=== PATIENT | female | born 1940 | race Caucasian/White ===

== ENCOUNTER 2021-12-03 17:23 | Emergency (ER) | payer MEDICARE, SELFPAY ==
[2021-12-03] VITALS (8 sets, daily range): BP systolic 163–177; BP diastolic 72–81; PULSE 76–91; RESP 17–20; TEMP 36.3; O2SAT 95–100; BMI 36.6
--- NOTE | 2021-12-03 17:27 | DI.RAD.S_ITS ---
PROCEDURE: XR KNEE RT 1TO2V INDICATIONS: fall with right knee pain TECHNIQUE: 3 views of the knee were acquired. COMPARISON: None. FINDINGS: Bones: No fractures or dislocations. No suspicious bony lesions. Severe joint space narrowing with marginal osteophytes involve both the mediolateral as well as the patellofemoral compartment. Subchondral cysts noted. Moderate joint effusion. Soft tissues: Otherwise unremarkable IMPRESSION: Severe tricompartmental osteoarthritis Moderate joint effusion Approved by: Vinh Pandya M.D. on 12/03/2021 at 17:34
[2021-12-03] MEDS: ACETAMINOPHEN 325 MG TABLET 975 MG PO (17:40)
--- NOTE | 2021-12-03 18:13 | ED.FALL ---
HPI - Fall <CARIE Patel - Last Filed: 12/03/21 20:47> General Chief Complaint: Fall Stated Complaint: fall yesterday, r knee pain Time Seen by Provider: 12/03/21 18:09 Source: patient Mode of arrival: EMS History of Present Illness HPI Narrative: 81-year-old female presents to the emergency department by EMS for right knee pain since yesterday when she fell on her right knee. She states that she lives alone, she fell forward and injured her right knee, she denies any known twisting of her right knee. Patient states that she takes tramadol at home and took 2 of these tablets prior to her arrival. Patient states that she was able to bear weight last night but has been unable to walk on it today. Patient denies taking any anticoagulants, she states that she is having muscle spasms, and having severe 10 out 10 pain in her right knee. Patient denies having any allergies, states yesterday she was able to ambulate on it but not today. She denies any sensation changes distally, she denies any specific area of her right knee that is painful, she states the whole knee hurts. Patient states that she is pending a right total knee replacement, she had an appointment with Orthopedics last week, she has known osteoarthritis of her right knee. Related Data Previous Rx's Medication Instructions Recorded hydrocodone 5 mg-acetaminophen 325 1 tab PO Q6H PRN #14 tab 12/03/21 mg tablet methocarbamol 500 mg tablet 500 mg PO TID PRN #20 tab 12/03/21 tramadol 50 mg tablet 50 mg PO DAILY PRN #14 tab 12/03/21 Allergies Allergy/AdvReac Type Severity Reaction Status Date / Time No Known Drug Allergies Allergy Verified 12/03/21 17:27 Review of Systems <CARIE Patel - Last Filed: 12/03/21 20:47> Review of Systems Narrative: General: denies fever, chills, malaise, sweats, fatigue Head/Neck: denies headache, neck pain, dizziness Eyes: denies visual changes, eye pain Cardio: denies chest pain, palpitations, edema Respiratory: denies dyspnea, cough, orthopnea GI: denies abdominal pain, nausea, vomiting, or diarrhea : denies dysuria, hematuria, urinary retention, frequency or incontinence MSK: Endorses right knee pain 07/06, she states that she can bend it but not currently due to the pain, denies muscle weakness, endorses muscle spasms Skin: denies rash, itching, skin lesions or other Neuro: denies numbness, tingling Patient History <CARIE Patel - Last Filed: 12/03/21 20:47> Social History household members: none Smoking Status: Unknown if ever smoked Smoking Status: Unknown if ever smoked alcohol intake frequency: holidays/special occasions only Substance Use Type: does not use Exam <CARIE Patel - Last Filed: 12/03/21 20:47> Narrative Exam Narrative: Independently reviewed vitals signs and nursing notes. General: Cooperative, in acute distress, well groomed, having muscle spasms and tearful Head/Neck: Normal visual inspection and supple, atraumatic, Normal facial exam Eyes: Pupils equal round and reactive, EOMI, conjunctiva normal Nose: External nose normal, nares patent, no rhinorrhea, without purulent drainage Mouth/Throat: uvula midline, moist mucus membranes Cardio: Regular rate and rhythm, no peripheral edema, warm extremities Respiratory: Normal respiratory effort, able to speak in complete sentences without audible wheezing, stridor, or rales. No retractions. GI: Abdomen soft, nontender to palpation x4 quadrants, nondistended, no masses or exquisite tenderness with exam, no flank tenderness MSK: Moves all extremities, neurovascularly intact, right quadriceps with muscle spasms, cap refill less than 2 seconds distally PT and DP pulses are 1+ bilaterally, ambulation trial after pain medicine was unsuccessful, patient was unable to bear weight due to pain. She is having muscle spasms, no deformity, no crepitus, no open wounds Skin: Normal capillary refill, no rash Neuro: Normal speech and cognition, normal gait, A&O x3, tone normal, moves all extremities Psych: Mental status is grossly normal, speech is clear, congruent mood, normal affect Initial Vital Signs Initial Vital Signs: Vital Signs Temperature 97.4 F L 12/03/21 17:22 Pulse Rate 76 12/03/21 17:22 Respiratory Rate 20 12/03/21 17:22 Blood Pressure 172/79 H 12/03/21 17:22 Pulse Oximetry 95 12/03/21 17:22 <Bryan Gómez DO - Last Filed: 12/05/21 02:00> Initial Vital Signs Initial Vital Signs: Vital Signs Temperature 97.4 F L 12/03/21 17:22 Pulse Rate 76 12/03/21 17:22 Respiratory Rate 20 12/03/21 17:22 Blood Pressure 172/79 H 12/03/21 17:22 Pulse Oximetry 95 12/03/21 17:22 Course <CARIE Patel - Last Filed: 12/03/21 20:47> Orders Ordered: Discontinued Medications Acetaminophen (Acetaminophen 325 Mg Tablet) 975 mg PO NOW ONE Stop: 12/03/21 17:41 Last Admin: 12/03/21 17:40 Dose: 975 mg Documented by: THOMAS Diclofenac Sodium (Diclofenac 1% Gel 100 Gm) 1 applic TOP NOW ONE Stop: 12/03/21 18:38 Last Admin: 12/03/21 18:57 Dose: 1 applic Documented by: THOMAS Hydromorphone HCl (Hydromorphone 0.5 Mg Inj) 0.5 mg IV NOW ONE Stop: 12/03/21 18:15 Last Admin: 12/03/21 18:33 Dose: 0.5 mg Documented by: CHA Ketorolac Tromethamine (Ketorolac 10 Mg Tablet) 10 mg PO NOW ONE Stop: 12/03/21 18:13 Last Admin: 12/03/21 18:36 Dose: Not Given Documented by: HCA Methocarbamol (Methocarbamol 500 Mg Tablet) 500 mg PO NOW ONE Stop: 12/03/21 18:16 Last Admin: 12/03/21 18:33 Dose: 500 mg Documented by: CHA Oxycodone HCl (Oxycodone Ir 5 Mg Tablet) 5 mg PO NOW ONE Stop: 12/03/21 18:13 Last Admin: 12/03/21 18:36 Dose: Not Given Documented by: CHA Oxycodone HCl (Oxycodone Ir 5 Mg Tablet) 5 mg PO NOW ONE Stop: 12/03/21 18:38 Last Admin: 12/03/21 18:50 Dose: 5 mg Documented by: THOMAS Vital Signs Vital signs: Vital Signs - 8 hr 12/03/21 17:22 12/03/21 17:38 12/03/21 17:39 Temperature 97.4 F L Pulse Rate 76 82 82 Respiratory Rate 20 Blood Pressure 172/79 H 177/77 H Pulse Oximetry 95 100 99 12/03/21 17:41 12/03/21 18:59 12/03/21 19:00 Temperature Pulse Rate 88 80 78 Respiratory Rate Blood Pressure 176/81 H 172/72 H 163/72 H Pulse Oximetry 100 98 99 <Bryan Gómez DO - Last Filed: 12/05/21 02:00> Orders Ordered: Discontinued Medications Acetaminophen (Acetaminophen 325 Mg Tablet) 975 mg PO NOW ONE Stop: 12/03/21 17:41 Last Admin: 12/03/21 17:40 Dose: 975 mg Documented by: THOMAS Diclofenac Sodium (Diclofenac 1% Gel 100 Gm) 1 applic TOP NOW ONE Stop: 12/03/21 18:38 Last Admin: 12/03/21 18:57 Dose: 1 applic Documented by: THOMAS Hydromorphone HCl (Hydromorphone 0.5 Mg Inj) 0.5 mg IV NOW ONE Stop: 12/03/21 18:15 Last Admin: 12/03/21 18:33 Dose: 0.5 mg Documented by: CHA Ketorolac Tromethamine (Ketorolac 10 Mg Tablet) 10 mg PO NOW ONE Stop: 12/03/21 18:13 Last Admin: 12/03/21 18:36 Dose: Not Given Documented by: CHA Methocarbamol (Methocarbamol 500 Mg Tablet) 500 mg PO NOW ONE Stop: 12/03/21 18:16 Last Admin: 12/03/21 18:33 Dose: 500 mg Documented by: CHA Oxycodone HCl (Oxycodone Ir 5 Mg Tablet) 5 mg PO NOW ONE Stop: 12/03/21 18:13 Last Admin: 12/03/21 18:36 Dose: Not Given Documented by: CHA Oxycodone HCl (Oxycodone Ir 5 Mg Tablet) 5 mg PO NOW ONE Stop: 12/03/21 18:38 Last Admin: 12/03/21 18:50 Dose: 5 mg Documented by: THOMAS Vital Signs Vital signs: Vital Signs - 8 hr 12/03/21 17:22 12/03/21 17:38 12/03/21 17:39 Temperature 97.4 F L Pulse Rate 76 82 82 Respiratory Rate 20 Blood Pressure 172/79 H 177/77 H Pulse Oximetry 95 100 99 12/03/21 17:41 12/03/21 18:59 12/03/21 19:00 Temperature Pulse Rate 88 80 78 Respiratory Rate Blood Pressure 176/81 H 172/72 H 163/72 H Pulse Oximetry 100 98 99 MDM - Fall <Radha Don, [facility] - Last Filed: 12/03/21 20:47> Imaging Data Extremity x-ray #1: Radiologist's Impression: PROCEDURE:? XR KNEE RT 1TO2V ? INDICATIONS:? fall with right knee pain ? TECHNIQUE:? 3 views of the knee were acquired.? ? COMPARISON:? None. ? FINDINGS:? ? Bones:? No fractures or dislocations.? No suspicious bony lesions.? Severe joint space narrowing with marginal osteophytes involve both the mediolateral as well as the patellofemoral compartment.? Subchondral cysts noted.? Moderate joint effusion. ? Soft tissues:? Otherwise unremarkable ? ? IMPRESSION:? ? Severe tricompartmental osteoarthritis Moderate joint effusion ? ? ? Approved by: Vinh Pandya M.D. on 12/03/2021 at 17:34? Extremity x-ray #2: Radiologist's Impression: PROCEDURE:? XR KNEE RT 1TO2V ? INDICATIONS:? knee trauma, additional views to go with prior 2, sunrise and med oblique ? TECHNIQUE:? 2 views of the knee were acquired.? ? COMPARISON:? [facility], , XR KNEE RT 1TO2V, 12/03/2021, 17:52. ? FINDINGS:? ? Bones:? No fractures or dislocations.? No suspicious bony lesions.? Severe tricompartmental osteoarthritis.? ? Soft tissues:? No joint effusion.? No suspicious soft tissue calcifications.? ? ? IMPRESSION:? No fracture. No acute osseous lesion. If symptoms and/or clinical suspicion for pathology persists, further assessment with repeat radiographs (7-10 days) or advanced imaging (e.g. CT, MRI or bone scan) should be considered. ? ? Dictated by: Cat Carlisle MD, PhD on 12/03/2021 at 19:17 ? ? Approved by: Cat Carlisle MD, PhD on 12/03/2021 at 19:18 ? CT LE: Radiologist's Impression: PROCEDURE:? CT LE RT WO CON ? INDICATIONS:? unable to bear weight, severe OA, fall on to knee ? TECHNIQUE:? Noncontrast 1-1.5 mm axial sections acquired from the mid-patella to the proximal tibia, with coronal and sagittal reformats.? ? COMPARISON:? [facility], CR, XR KNEE RT 1TO2V, 12/03/2021, 17:52.? [facility], CR, XR KNEE RT 1TO2V, 12/03/2021, 18:40. ? FINDINGS:? Image quality:? Excellent.? ? Bones:? No acute fracture is seen.? Of note, CT is relatively insensitive for trabecular bone injury.? Tricompartmental degenerative changes are seen with moderate to high-grade joint space narrowing in all 3 compartments, worst in the medial compartment.? Tricompartmental marginal osteophytes are present. ? Soft tissues:? There is a moderate joint effusion.? A moderate medial popliteal cyst is seen.? The articular cartilages, menisci, ligaments, and tendons are not well evaluated with CT.? Small ossified loose bodies are seen medial to the medial femorotibial joint line.? The musculature surrounding the knee is normal in bulk for age.? Varicose veins are noted in the medial subcutaneous tissues. ? ? IMPRESSION:? 1. No acute osseous fracture identified.? If there is concern for trabecular bone injury or injury to the soft tissues, MRI could be obtained for further evaluation. 2. Tricompartmental moderate to severe osteoarthrosis. 3. Moderate joint effusion.? Moderate medial popliteal cyst.? Dictated by: Guillaume Burnett M.D. on 12/03/2021 at 20:19 ? ? Approved by: Guillaume Burnett M.D. on 12/03/2021 at 20:24 ? [facility] Narrative Medical decision making narrative: 81-year-old with history significant for severe osteoarthritis presents to the emergency via ambulance for right knee pain after she fell on her right knee yesterday. Patient lives alone, states that she tripped and fell forward onto her right knee she did not injure her head. Right knee x-ray shows severe tricompartmental osteoarthritis with a moderate joint effusion and severe joint space narrowing. Patient was not 10/10 pain, she was given Dilaudid 0.5 mg IM, methocarbamol for muscle spasm, and Voltaren gel to her right knee. Patient states that her pain was markedly improved after this, she was talkative, able to move her knee, flexion and extension are intact without deficit. Ambulation trial with walker was unsuccessful, patient is unable to bear weight due to her pain, she denies any instability. CT right lower extremity was obtained due to patient's inability to bear weight due to pain. CT shows no acute osseous fracture, tricompartmental moderate to severe osteoarthrosis, moderate joint effusion, moderate medial popliteal cyst. 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 Patient has an appointment with Orthopedics last week for her right knee and needs a total knee replacement. Patient's son states that she was trying to delay this. Patient was counseled on the importance of getting this taking care of mena because she is unable to walk. Discussed wanting to admit the patient for pain control and her inability to walk but patient refused and states that she has the resources and the ability to go home, she has a sage potty, and does not need to walk. Patient was given prescription for hydrocodone, methocarbamol, tramadol, Voltaren gel. A referral to [facility] was placed. Encouraged patient's son to get her back to orthopedics mena for surgery. Discussed strict return precautions, if she is unable to care for herself, if she is at risk of falling, or if it is unsafe to be at home, he will call 911 and they will return to the emergency department. Patient is appropriate and amenable to discharge home. Vital signs are stable on repeat examination is unremarkable. Patient has been informed of results. Patient has been given strict return to ER precautions for any new or worsening symptoms. Patient understands to follow up closely with outpatient providers as instructed. Patient understands plan and agrees to discharge home. All questions and concerns answered at this time. Discharge Plan Departure Patient Disposition: Home Clinical Impression: Right knee injury, Tricompartment osteoarthritis of right knee Instructions: DI for Osteoarthritis, How to Prevent Falls, DI for Knee Pain Activity Restrictions/Additional Instructions: *You have been diagnosed with right knee osteoarthritis and severe pain from your knee injury. Please have your family comes today with you so that they can help take care of you. Your x-ray did not show any after fractures, your CT showed that you have severe osteoarthritis in your right knee and a moderate joint effusion which is swelling within the joint. You have [id number] rubbing, and that is why this is so painful for you. I am very concerned about your safety at home if you are unable to bear weight. Please use tramadol for your pain accompanied with methocarbamol for muscle spasms as needed. I have given you breakthrough pain medications called hydrocodone which he may use in addition to these if the 1st 2 are unsuccessful. Please apply the Voltaren gel up to 4 times daily to your right knee to help with the pain. Please take Tylenol in addition to these medications if you are still having pain. All these things together will be helpful. Please use ice while you are resting. Please follow-up at [facility] for your pending knee surgery. Please use a walker at all times when ambulating, have a toilet by your bed and use help every time you get up so that you do not fall and get hurt worse. Please return to the emergency department if you have any worsening of your symptoms. *What to do: *Please continue to take your regular medications as directed. [x ] New medication prescriptions sent to your pharmacy: [ [facility]] [ ] New medication written as a paper prescription [ ] No new medications given *Please follow up with your primary care provider in 2-3 days, call for an appointment. Let them know you were seen in the Emergency Department and that we ask that you be seen in follow up. We will electronically transmit a record of today's note if your PCP is in our system *If you do not have a primary care provider please contact the [facility] Resource line at [phone]. They will ask some questions about your medical history and help get you set up with a doctor in the community. *Return to Emergency Department if you should have any new, worsening or concerning symptoms, such as [fever greater than 101F, chills, worsening pain, persistent vomiting or other bothersome symptoms] Prescriptions: New tramadol 50 mg tablet 50 mg PO DAILY PRN (Reason: pain, osteoarthritis) Qty: 14 0RF methocarbamol 500 mg tablet 500 mg PO TID PRN (Reason: muscle spasm) Qty: 20 0RF hydrocodone-acetaminophen 5-325 mg tablet 1 tab PO Q6H PRN (Reason: pain) Qty: 14 0RF Referrals: [facility] [Provider Group] Henry Ham MD [Primary Care Provider] - <Bryan Gómez DO - Last Filed: 12/05/21 02:00> Cosign ED Attending Cosignature Attestation: I was immediately available in the department for consultation. This documentation has been reviewed and I agree with assessment and plan. Supervised by Bryan Gómez DO
[2021-12-03] MEDS: HYDROMORPHONE 0.5 MG INJ IV (18:33)
[2021-12-03] MEDS: methocarbamoL 500 MG TABLET PO (18:33)
--- NOTE | 2021-12-03 18:36 | DI.RAD.S_ITS ---
PROCEDURE: XR KNEE RT 1TO2V INDICATIONS: knee trauma, additional views to go with prior 2, sunrise and med oblique TECHNIQUE: 2 views of the knee were acquired. COMPARISON: [facility], , XR KNEE RT 1TO2V, 12/03/2021, 17:52. FINDINGS: Bones: No fractures or dislocations. No suspicious bony lesions. Severe tricompartmental osteoarthritis. Soft tissues: No joint effusion. No suspicious soft tissue calcifications. IMPRESSION: No fracture. No acute osseous lesion. If symptoms and/or clinical suspicion for pathology persists, further assessment with repeat radiographs (7-10 days) or advanced imaging (e.g. CT, MRI or bone scan) should be considered. Dictated by: Cat Carlisle MD, PhD on 12/03/2021 at 19:17 Approved by: Cat Carlisle MD, PhD on 12/03/2021 at 19:18
[2021-12-03] MEDS: OXYCODONE IR 5 MG TABLET PO (18:50)
[2021-12-03] MEDS: DICLOFENAC 1% GEL 100 GM 1 APPLIC TOP (18:57)
--- NOTE | 2021-12-03 19:41 | DI.CT.S_ITS ---
PROCEDURE: CT LE RT WO CON INDICATIONS: unable to bear weight, severe OA, fall on to knee TECHNIQUE: Noncontrast 1-1.5 mm axial sections acquired from the mid-patella to the proximal tibia, with coronal and sagittal reformats. COMPARISON: [facility], CR, XR KNEE RT 1TO2V, 12/03/2021, 17:52. [facility], CR, XR KNEE RT 1TO2V, 12/03/2021, 18:40. FINDINGS: Image quality: Excellent. Bones: No acute fracture is seen. Of note, CT is relatively insensitive for trabecular bone injury. Tricompartmental degenerative changes are seen with moderate to high-grade joint space narrowing in all 3 compartments, worst in the medial compartment. Tricompartmental marginal osteophytes are present. Soft tissues: There is a moderate joint effusion. A moderate medial popliteal cyst is seen. The articular cartilages, menisci, ligaments, and tendons are not well evaluated with CT. Small ossified loose bodies are seen medial to the medial femorotibial joint line. The musculature surrounding the knee is normal in bulk for age. Varicose veins are noted in the medial subcutaneous tissues. IMPRESSION: 1. No acute osseous fracture identified. If there is concern for trabecular bone injury or injury to the soft tissues, MRI could be obtained for further evaluation. 2. Tricompartmental moderate to severe osteoarthrosis. 3. Moderate joint effusion. Moderate medial popliteal cyst. Dictated by: Guillaume Burnett M.D. on 12/03/2021 at 20:19 Approved by: Guillaume Burnett M.D. on 12/03/2021 at 20:24
== END 2021-12-03 21:39 | disposition home or self-care (01) ==
PROVIDERS: Emergency Provider Nurse Practitioner Critical Care Medicine; PCP Internal Medicine
DX: S89.91XA Unspecified injury of right lower leg, initial encounter (principal); M17.11 Unilateral primary osteoarthritis, right knee; M25.461 Effusion, right knee; M71.21 Synovial cyst of popliteal space [Baker], right knee; W01.0XXA Fall on same level from slipping, tripping and stumbling without subsequent striking against object, initial encounter
CPT/HCPCS: 73560; 73700; 96374; 99284; J1170

== ENCOUNTER 2021-12-04 06:16 | Emergency (ER) | payer MEDICARE, SELFPAY ==
[2021-12-04 06:25] VITALS: BP 129/74; PULSE 97; RESP 17; TEMP 36.9; O2SAT 98; BMI 36.6
--- NOTE | 2021-12-04 06:47 | ED.LOWEXIN ---
HPI - Extremity Injury (Lower) <Bryan Gómez DO - Last Filed: 12/05/21 02:51> General Chief Complaint: Extremity Injury, Lower Stated Complaint: RT knee pain Time Seen by Provider: 12/04/21 06:40 Source: patient Mode of arrival: Wheelchair History of Present Illness HPI Narrative: 81-year-old female nonsmoker returns to the emergency department with her son in the chief complaint of ongoing right knee pain. She had fallen from ground level onto her right knee 2 days ago and was transported by [facility] yesterday for evaluation of significant pain. She denies other injury. She says she has 10/10 pain in her right knee particularly with ambulating or any range of motion. She denies any prodromal symptoms contributing to her fall. She had extensive evaluation yesterday including x-rays and CTs that were unremarkable for fracture or dislocation. There is extensive bedside discussion between the provider in family and patient was discharged home with multiple family members a grain to help. Patient had a difficult evening and has been able to ambulate even with their assistance. Her son brought her back because they are unable to care for her at home. Related Data Previous Rx's Medication Instructions Recorded hydrocodone 5 mg-acetaminophen 325 1 tab PO Q6H PRN #14 tab 12/03/21 mg tablet methocarbamol 500 mg tablet 500 mg PO TID PRN #20 tab 12/03/21 tramadol 50 mg tablet 50 mg PO DAILY PRN #14 tab 12/03/21 Allergies Allergy/AdvReac Type Severity Reaction Status Date / Time No Known Drug Allergies Allergy Verified 12/03/21 17:27 Review of Systems <DO Sean Summers Last Filed: 12/05/21 02:51> Review of Systems Narrative: GENERAL: Denies chills, fatigue, malaise, fever, sweats. HEENT: Denies sinus pain, ear pain, sore throat, difficulty swallowing, dizziness. RESPIRATORY: Denies dyspnea, cough, wheezing, hemoptysis, sputum. CARDIOVASCULAR: Denies chest pain, palpitations, orthopnea, edema, GASTROINTESTINAL: Denies nausea, vomiting, abdominal pain, diarrhea, constipation, melena. : Denies dysuria, frequency, incontinence, hematuria, urinary retention. MUSCULOSKELETAL: See HPI SKIN: Denies rash, skin lesions, or other NEUROLOGIC: Denies weakness, headache, numbness, change in speech, confusion, seizures, incoordination. PSYCHIATRIC: No concerning psychosocial issues. 12 point review of systems is negative except for those stated above Patient History <Bryan Gómez DO - Last Filed: 12/05/21 02:51> Social History household members: none Smoking Status: Unknown if ever smoked Smoking Status: Unknown if ever smoked alcohol intake frequency: 0-2 drinks per day Alcohol type: wine Substance Use Type: does not use Exam <Bryan Gómez DO - Last Filed: 12/05/21 02:51> Narrative Exam Narrative: GENERAL: 81[] year old patient appears stated age. Well-developed patient, in obvious distress, complaining of right knee pain. It required 3 of us to help get her out of her car HEAD: Atraumatic. Normocephalic. EYES: Pupils equal round and reactive. Extraocular motions intact. No scleral icterus. No injection or drainage. ENT: Nose without bleeding, purulent drainage. Throat without erythema, tonsillar hypertrophy or exudate. Airway patent. NECK: Trachea midline. Non tender CARDIOVASCULAR: Regular rate and rhythm without murmurs, gallops, or rubs. RESPIRATORY: Clear to auscultation. Breath sounds equal bilaterally. No wheezes, rales, or rhonchi. GASTROINTESTINAL: Abdomen soft, non-tender, nondistended. EXTREMITIES: Significant pain with range of motion of right knee, no significant effusion or ligamentous instability. This is closed, isolated neurovascular intact BACK: Nontender without deformity or crepitance. No flank tenderness. NEURO: AOx3. SKIN: No rash or erythema of visible areas Initial Vital Signs Initial Vital Signs: Vital Signs Temperature 98.4 F 12/04/21 06:25 Pulse Rate 97 H 12/04/21 06:25 Respiratory Rate 17 12/04/21 06:25 Blood Pressure 129/74 12/04/21 06:25 Pulse Oximetry 98 12/04/21 06:25 <Jessica Goodman DO - Last Filed: 12/04/21 18:35> Initial Vital Signs Initial Vital Signs: Vital Signs Temperature 98.4 F 12/04/21 06:25 Pulse Rate 97 H 12/04/21 06:25 Respiratory Rate 17 12/04/21 06:25 Blood Pressure 129/74 12/04/21 06:25 Pulse Oximetry 98 12/04/21 06:25 Course <Bryan Gómez DO - Last Filed: 12/05/21 02:51> Orders Ordered: Discontinued Medications Hydrocodone Bitart/Acetaminophen (Hydrocodone/Acet 5/325 Tablet) 2 tab PO NOW ONE Stop: 12/04/21 09:08 Last Admin: 12/04/21 09:27 Dose: 2 tab Documented by: THOMAS Vital Signs Vital signs: Vital Signs - 8 hr 12/04/21 14:06 Pulse Rate 78 Blood Pressure 136/90 Pulse Oximetry 94 <Jessica Goodman DO - Last Filed: 12/04/21 18:35> Orders Ordered: Discontinued Medications Hydrocodone Bitart/Acetaminophen (Hydrocodone/Acet 5/325 Tablet) 2 tab PO NOW ONE Stop: 12/04/21 09:08 Last Admin: 12/04/21 09:27 Dose: 2 tab Documented by: THOMAS Vital Signs Vital signs: Vital Signs - 8 hr 12/04/21 14:06 Pulse Rate 78 Blood Pressure 136/90 Pulse Oximetry 94 MDM - Extremity Injury (Lower) <DO Sean Summers Last Filed: 12/05/21 02:51> Lab Data Result diagrams: 12/04/21 08:00 12/04/21 06:55 Labs: Lab Results 12/04/21 12/04/21 12/04/21 Range/Units 06:55 07:22 08:00 WBC 14.3 H (4.5-11.0) X10^3/uL RBC 5.16 (4.0-5.2) X10^6/uL Hgb 14.6 (12.0-16.0) g/dL Hct 43.9 (36-46) % MCV 85.1 (80-100) fL MCH 28.3 (26-34) PG MCHC 33.2 (30-36) % RDW 14.9 H (11.6-14.8) % Plt Count 271 (150-400) X10^3/uL Neut % (Auto) 74.9 (50-75) % Lymph % (Auto) 12.8 L (25-40) % [place] % (Auto) 12.1 (3-14) % Eos % (Auto) 0.0 L (2-4) % Baso % (Auto) 0.2 (0-2) % Neut # (Auto) 14652 H (7776-4931) /uL Lymph # (Auto) 1800 (9382-7890) /uL [place] # (Auto) 1700 H (0-900) /uL Eos # (Auto) 0 (0-450) /uL Baso # (Auto) 0 (0-100) /uL ESR (0-20) MM/HR Sodium 135 L (137-145) mmol/L Potassium 3.7 (3.4-5.1) mmol/L Chloride 95 L (98-107) mmol/L Carbon Dioxide 32 (22-32) mmol/L BUN 17 (7-17) mg/dL Creatinine 0.78 (0.52-1.04) mg/dL Estimated GFR > 60.0 (>60) mL/min BUN/Creatinine Ratio 21.8 (6-22) Glucose 189 H (80-110) mg/dL Calcium 9.3 (8.4-10.2) mg/dL Total Bilirubin 0.9 (0.2-1.3) mg/dL AST 31 (14-36) IU/L ALT 24 (<35) IU/L Alkaline Phosphatase 66 (38-126) U/L C-Reactive Protein 13.9 H (<1.0) mg/dL Total Protein 8.2 (6.3-8.2) g/dL Albumin 4.7 (3.5-5.0) g/dL Globulin 3.5 (1.7-4.1) g/dL Albumin/Globulin Ratio 1.3 (1.0-2.8) 12/04/21 Range/Units 08:00 WBC (4.5-11.0) X10^3/uL RBC (4.0-5.2) X10^6/uL Hgb (12.0-16.0) g/dL Hct (36-46) % MCV (80-100) fL MCH (26-34) PG MCHC (30-36) % RDW (11.6-14.8) % Plt Count (150-400) X10^3/uL Neut % (Auto) (50-75) % Lymph % (Auto) (25-40) % [place] % (Auto) (3-14) % Eos % (Auto) (2-4) % Baso % (Auto) (0-2) % Neut # (Auto) (2981-8113) /uL Lymph # (Auto) (4548-1729) /uL [place] # (Auto) (0-900) /uL Eos # (Auto) (0-450) /uL Baso # (Auto) (0-100) /uL ESR 41 H (0-20) MM/HR Sodium (137-145) mmol/L Potassium (3.4-5.1) mmol/L Chloride (98-107) mmol/L Carbon Dioxide (22-32) mmol/L BUN (7-17) mg/dL Creatinine (0.52-1.04) mg/dL Estimated GFR (>60) mL/min BUN/Creatinine Ratio (6-22) Glucose (80-110) mg/dL Calcium (8.4-10.2) mg/dL Total Bilirubin (0.2-1.3) mg/dL AST (14-36) IU/L ALT (<35) IU/L Alkaline Phosphatase (38-126) U/L C-Reactive Protein (<1.0) mg/dL Total Protein (6.3-8.2) g/dL Albumin (3.5-5.0) g/dL Globulin (1.7-4.1) g/dL Albumin/Globulin Ratio (1.0-2.8) <Jessica Goodman, DO - Last Filed: 12/04/21 18:35> Lab Data Labs: Lab Results 12/04/21 12/04/21 12/04/21 Range/Units 06:55 07:22 08:00 WBC 14.3 H (4.5-11.0) X10^3/uL RBC 5.16 (4.0-5.2) X10^6/uL Hgb 14.6 (12.0-16.0) g/dL Hct 43.9 (36-46) % MCV 85.1 (80-100) fL MCH 28.3 (26-34) PG MCHC 33.2 (30-36) % RDW 14.9 H (11.6-14.8) % Plt Count 271 (150-400) X10^3/uL Neut % (Auto) 74.9 (50-75) % Lymph % (Auto) 12.8 L (25-40) % [place] % (Auto) 12.1 (3-14) % Eos % (Auto) 0.0 L (2-4) % Baso % (Auto) 0.2 (0-2) % Neut # (Auto) 17636 H (0539-8007) /uL Lymph # (Auto) 1800 (3110-7890) /uL [place] # (Auto) 1700 H (0-900) /uL Eos # (Auto) 0 (0-450) /uL Baso # (Auto) 0 (0-100) /uL ESR (0-20) MM/HR Sodium 135 L (137-145) mmol/L Potassium 3.7 (3.4-5.1) mmol/L Chloride 95 L (98-107) mmol/L Carbon Dioxide 32 (22-32) mmol/L BUN 17 (7-17) mg/dL Creatinine 0.78 (0.52-1.04) mg/dL Estimated GFR > 60.0 (>60) mL/min BUN/Creatinine Ratio 21.8 (6-22) Glucose 189 H (80-110) mg/dL Calcium 9.3 (8.4-10.2) mg/dL Total Bilirubin 0.9 (0.2-1.3) mg/dL AST 31 (14-36) IU/L ALT 24 (<35) IU/L Alkaline Phosphatase 66 (38-126) U/L C-Reactive Protein 13.9 H (<1.0) mg/dL Total Protein 8.2 (6.3-8.2) g/dL Albumin 4.7 (3.5-5.0) g/dL Globulin 3.5 (1.7-4.1) g/dL Albumin/Globulin Ratio 1.3 (1.0-2.8) 12/04/21 Range/Units 08:00 WBC (4.5-11.0) X10^3/uL RBC (4.0-5.2) X10^6/uL Hgb (12.0-16.0) g/dL Hct (36-46) % MCV (80-100) fL MCH (26-34) PG MCHC (30-36) % RDW (11.6-14.8) % Plt Count (150-400) X10^3/uL Neut % (Auto) (50-75) % Lymph % (Auto) (25-40) % [place] % (Auto) (3-14) % Eos % (Auto) (2-4) % Baso % (Auto) (0-2) % Neut # (Auto) (7969-0955) /uL Lymph # (Auto) (4306-9445) /uL [place] # (Auto) (0-900) /uL Eos # (Auto) (0-450) /uL Baso # (Auto) (0-100) /uL ESR 41 H (0-20) MM/HR Sodium (137-145) mmol/L Potassium (3.4-5.1) mmol/L Chloride (98-107) mmol/L Carbon Dioxide (22-32) mmol/L BUN (7-17) mg/dL Creatinine (0.52-1.04) mg/dL Estimated GFR (>60) mL/min BUN/Creatinine Ratio (6-22) Glucose (80-110) mg/dL Calcium (8.4-10.2) mg/dL Total Bilirubin (0.2-1.3) mg/dL AST (14-36) IU/L ALT (<35) IU/L Alkaline Phosphatase (38-126) U/L C-Reactive Protein (<1.0) mg/dL Total Protein (6.3-8.2) g/dL Albumin (3.5-5.0) g/dL Globulin (1.7-4.1) g/dL Albumin/Globulin Ratio (1.0-2.8) MDM Narrative Medical decision making narrative: I received sign-out from Dr. Gómez. Patient sitting in wheelchair appears comfortable. She has been seen evaluated by physical therapy. She is unwilling to participate very much. She apparently has all walker or a wheelchair and a commode. She has plenty of family members to help her. His social Work has been in to see and evaluate her they are setting up home health care. She actually was able to stand and help transfer. I have called and told son this as well. At this time she meets no admission criteria. Discharge Plan Departure Patient Disposition: Home Clinical Impression: Right knee injury Instructions: DI for Knee Pain Activity Restrictions/Additional Instructions: *You have been diagnosed with right knee injury *What to do: Please use your walker and wheelchair as needed. I am so sorry that he fell in her your knee. Elevate and ice. Home health and physical therapy has been set up for you. This should start in about 1 week. *Continue to take medications as directed Please take pain medications as directed if you should need more you will need to contact your primary care provider *Follow up with your primary care provider in 2-3 days or call [phone] *Return to ER if you should have increasing falls, weakness redness or any new, worsening or concerning symptoms Prescriptions: No Action tramadol 50 mg tablet 50 mg PO DAILY PRN (Reason: pain, osteoarthritis) Qty: 14 0RF methocarbamol 500 mg tablet 500 mg PO TID PRN (Reason: muscle spasm) Qty: 20 0RF hydrocodone-acetaminophen 5-325 mg tablet 1 tab PO Q6H PRN (Reason: pain) Qty: 14 0RF Referrals: Henry Ham MD [Primary Care Provider] -
[2021-12-04 07:27] LABS: Alanine Aminotransferase 24 IU/L (<35); Albumin 4.7 g/dL (3.5-5.0); Albumin Globulin Ratio 1.3 (1.0-2.8); Alkaline Phosphatase 66 U/L (38-126); Aspartate Aminotransferase 31 IU/L (14-36); BUN Creatinine Ratio 21.8 (6-22); Bilirubin Total 0.9 mg/dL (0.2-1.3); Blood Urea Nitrogen 17 mg/dL (7-17); Calcium 9.3 mg/dL (8.4-10.2); Carbon Dioxide 32 mmol/L (22-32); Chloride 95 mmol/L (98-107); Estimated Glomerular Filt Rate > 60.0 mL/min (>60); Globulin 3.5 g/dL (1.7-4.1); Glucose 189 mg/dL (80-110); HEMOLYSIS < 15 (0-50); Potassium 3.7 mmol/L (3.4-5.1); Sodium 135 mmol/L (137-145); Total Protein 8.2 g/dL (6.3-8.2)
[2021-12-04 07:56] LABS: C-Reactive Protein Quant 13.9 mg/dL (<1.0)
[2021-12-04 08:17] LABS: Add Manual Diff / Slide Review NO; Basophils Absolute Auto 0 /uL (0-100); Basophils Percent Auto 0.2 % (0-2); Eosinophils Absolute Auto 0 /uL (0-450); Hematocrit 43.9 % (36-46); Hemoglobin 14.6 g/dL (12.0-16.0); Lymphocytes Absolute Auto 1800 /uL (1100-4500); Lymphocytes Percent Auto 12.8 % (25-40); Mean Corpuscular HGB Conc 33.2 % (30-36); Mean Corpuscular Hemoglobin 28.3 PG (26-34); Mean Corpuscular Volume 85.1 fL (80-100); Monocytes Absolute Auto 1700 /uL (0-900); Monocytes Percent Auto 12.1 % (3-14); Neutrophils Absolute Auto 10700 /uL (1500-7000); Neutrophils Percent Auto 74.9 % (50-75); Platelet Count 271 X10^3/uL (150-400); Red Blood Cell Count 5.16 X10^6/uL (4.0-5.2); Red Cell Distribution Width 14.9 % (11.6-14.8); White Blood Cell Count 14.3 X10^3/uL (4.5-11.0)
[2021-12-04 08:37] LABS: Erythrocyte Sedimentation Rate 41 MM/HR (0-20)
[2021-12-04] MEDS: HYDROCODONE/ACET 5/325 TABLET 2 TAB PO (09:27)
--- NOTE | 2021-12-04 09:50 | PT.IIE ---
Physical Therapy Inpatient Evaluation/Re-Eval M1 PT/OT-IP Prior Functional Status Start: 12/04/21 12:26 Freq: Status: Active Protocol: Document 12/04/21 09:50 AB (Rec: 12/04/21 12:46 AB [email or web address]) Medical Review Prior Functional Status Medical History Reviewed Yes Communication able to make needs known; [place] Mobility and Gait pt stated that she is independent with all mobilities and ambualtion without AD indoors but uses a SPC for outdoor mobility Social History Household Members none Living Arrangements House Number of Floors (Floors) One Floor Number of Stairs To Enter/Railing? Has not steps to enter the house but 2 steps R rail descending to get to living room area Home Environment High Toilet,Tub/Shower Home Equipment Front Wheel Walker,Straight Cane,Shower Seat without Backrest,Hand Held Shower,Grab Bars In Shower Additional Social History Comment pt stated that her grand daughter may stay and assist her at home M2 PT-IP Current Condition Start: 12/04/21 12:26 Freq: Status: Active Protocol: Document 12/04/21 09:50 AB (Rec: 12/04/21 12:46 AB [id number]) Physical Therapy Current Condition Current Condition Evaluation Date 12/04/21 Treatment Diagnosis R knee pain; difficulty in walking Onset Date 12/04/21 M3 PT-IP Subjective Start: 12/04/21 12:26 Freq: Status: Active Protocol: Document 12/04/21 09:50 AB (Rec: 12/04/21 12:46 AB [email or web address]) Subjective Physical Therapy Visit Type Type Initial Evaluation Visit Start Time 09:50 Visit Stop Time 10:25 Total Visit Minutes 35 Notes PT eval order received from ER . pt in the hospital for R knee pain s/p fall but imaging not showing any fx. Called ER to pre medicate pt for pain prior to PT eval as per EMR, no recent pain medication recorded. per ER staff, pt jeferson give medication within ~ 1 hour. Number of GROUP TEACHER Visits 0 Therapy Pain Assessment Pain When Pain Assessed At Rest Pain Present Pain Present Pain Reported Location right knee Intensity 2 Scale Used increases to 10/10 with movement M4 PT-IP Mobility and Gait Start: 12/04/21 12:26 Freq: Status: Active Protocol: Document 12/04/21 09:50 AB (Rec: 12/04/21 12:46 AB [email or web address]) PT-Transfer Assessment Comments Mobility Comments pt sitting on w/c . assessed BLE. RLE is swollen with pitting edema, tender to touch . pt c/o pain with slight touch and during ROM to 10/10. Encouraged pt to move. attempted sit to stand from chair with FWW in front of pt but pt unable to complete. pt will push a little with her arms to get up but lets go and does not push with BLE to get up. stated that this is due to pain and even just moving RLE or even moving LLE aggravates the pain. educated pt on importance of mobility and also informed regarding d/ c plan. pt agreed to stand up again but still unable and continues to push with UE but lets go. positioned pt on w/c . pt also asked for food and stated that she has not eaten since yesterday. informed nurse that pt was not able to stand due to pain. also informed that pt needs ice pack for R knee and pt was asking for food. Talked with the doctor and informed regarding pt's pain and mobility. Gait Assessment Comments Gait Comments unable PT-Balance Assessment Sitting Balance and Reactions Static Sitting Balance Ability Good Dynamic Sitting Balance Ability Good Standing Balance and Reactions Device Used na M5 PT-IP Objective Assessments Start: 12/04/21 12:26 Freq: Status: Active Protocol: Document 12/04/21 09:50 AB (Rec: 12/04/21 12:46 [email or web address]) Orientation Orientation/Cognition Level of Alertness Alert Orientation Name,Place,Situation Language Function Ability Hard of Hearing Memory Description No Deficits Noted Gross Range of Motion Lower Extremity ROM Impairments R knee guarding and pain limiting movement Strength Lower Extremity Strength Assessment Bilaterally Impaired Comments Strength Comments LLE: 3+/5 RLE: pain limiting movement: 2 +/5 Coordination Assessment Assessment Pronation/Supination Test Normal Performance Muscle Tone Muscle Tone WNL Yes M6 PT-IP Treatment Start: 12/04/21 12:26 Freq: Status: Active Protocol: Document 12/04/21 09:50 AB (Rec: 12/04/21 12:46 AB [email or web address]) Physical Therapy Treatment Education Education Provided Safety M7 PT-IP Assessment and Plan Start: 12/04/21 12:26 Freq: Status: Active Protocol: Document 12/04/21 09:50 AB (Rec: 12/04/21 12:46 [email or web address]) PT Summary Assessment and Plan Potential Rehabilitation Potential Fair Status of Condition at Evaluation Evolving Summary Impairments Pain,ROM,Strength,Balance, Coordination,Sensation,Tone, Cognition,Bed Mobility, Transfers,Gait,Activity Tolerance Assessment Summary PT arun received from ER to determine mobility and safety to d/c home. per pt: she came to the ER yesterday for R knee pain s/p fall and went home but came back this morning due to continued R knee pain and inability to get up from her couch. Attempted sit to stand with pt but pt unable to complete with c/o increase R knee pain. Pain need to be managed better for pt to mobilize and at this time may require SNF rehab. will assess progress. Goals Bed Mobility Goal Minimal Assistance Transfer Goal Minimal Assistance,Front Wheeled Walker Gait Goal Minimal Assistance,Front Wheel Walker Gait Distance 50 Other Goals improve bed mobility, transfers and ambulation using FWW 100 ft SBA up/down 2 steps L rail ascending SBA Days to Meet Goals 10 Frequency of Treatment Frequency Of Treatment Once a Day Treatment Plan Physical Therapy Treatment Plan Bed Mobility Training,Transfer Training,Gait Training, Therapeutic Exercise,Balance Retraining,Discharge Planning, Hot or Cold Pack,Neuromuscular Re-ed,Coordination Retraining ,Manual Therapy Recommendations To Nursing Amount of Assist Needed Mechanical Lift Discharge Recommendations PT Discharge Recommendations SNF Rehab Transportation Needs at Discharge Wheelchair/Cabulance
--- NOTE | 2021-12-04 13:27 | CM.SWNOTE ---
CORPORATE SECRETARY/DCP Assessment Note Patient is 81 y/o female who presents to the ED today due to knee pain after recent GLF on Wednesday. Patient presented to the ED on 12/03/21 and d/c to home with family. Per patient, she could not get off the couch when she returned home and her son brought her back to ED. Patient endorses she is 10/10 for pain and is not able to bare weight. Patient's PCP is Dr. Ham and insurance is [facility]. Patient has cane, wheelchair and FWW at home and endorses independence with ADLs prior to GLF, patient states she also drove herself. Patient states that she resides alone at home but her family is going to sell her home and she is going to move into an apartment. Patient endorses she has several family local family members. Patient states that her granddaughter is moving into home to stay with her. Patient had PT eval in ED today but stated she was in too much pain to ambulate. Per CONTROL OFFICER who assisted patient with bedside commode, patient was able to stand and transfer. Per ED provider there is no medical reason to admit patient. CORPORATE SECRETARY to refer patient for HH. CORPORATE SECRETARY discusses HH options to patient and patient denies preference. Patient reports she has bedside commode at home. CORPORATE SECRETARY calls [facility] regarding referral. CORPORATE SECRETARY faxes HH order, F2F and clinicals for referral. CORPORATE SECRETARY and ED provider discusses this patient and patient indicates agreement and understanding. ED provider calls patient's son as well. Plan: Patient to d/c to home with [facility] referral for PT and OT, ongoing family support, patient has ongoing PCP visits. GALLO [place] Discharge Planning/Care Management CM Discharge Assessment Start: 12/04/21 13:22 Freq: Status: Active Protocol: Document 12/04/21 13:23 LN (Rec: 12/04/21 13:27 LN [id number]) Discharge Planning Assessment Assigned Strategic Planning Manager GALLO Boucher Advance Directives? No Advance Directives on File No History Provided By Patient,Medical Record Has Patient been admitted in last 30 No days? Prior Living Arrangements House Household Members none Type of transportation used prior to Drives own vehicle admit Independent with ADL's Yes: Per patient, prior to GLF . Is patient alert and oriented? Yes DME Already Rented / Owned Wheelchair,FWW / Walker,Cane Comment Patient states she has cane at home has previously only used it outside but family just purchased Wheelchair and FWW. Patient/Family Preference Home with Home Health Comment Patient would benefit from referral for PT, patient had PT eval in ED but did not want to bare weight for evaluation . Please Provide Date Initial DC 12/04/21 Assessment Was Performed
--- NOTE | 2021-12-04 14:03 | PC.NURSE ---
Assisted patient with elimination. Patient used a bedside commode. Patient was able to stand up holding on to the wheelchair arms and the commode arms. Patient was able to turn herself around and sit on the toilet with minimal guidance on to the commode. Patient had to apply effort to get from wheelchair to commode. Post elimination, patient stood and allowed assistance for her brief and pants to be pulled up but then had to sit down on the commode lid to rest before transferring to wheelchair. Patient was independent in getting back into the wheelchair as well. Patient remains in wheelchair with a new ice pack applied, a book in hand, and call light within reach.
[2021-12-04 14:06] VITALS: BP 136/90; PULSE 78; O2SAT 94
== END 2021-12-04 14:20 | disposition home or self-care (01) ==
PROVIDERS: Emergency Medicine; Emergency Provider Emergency Medicine; PCP Internal Medicine
DX: S89.91XA Unspecified injury of right lower leg, initial encounter (principal); W18.30XA Fall on same level, unspecified, initial encounter
CPT/HCPCS: 36415; 80053; 85025; 85651; 86140; 97162; 99283

== ENCOUNTER → 2022-01-23 14:18 | Outpatient (CLI) | payer MEDICARE, SELFPAY ==
[2022-01-23 15:05] LABS: Add Manual Diff / Slide Review NO; BUN Creatinine Ratio 20.8 (6-22); Basophils Absolute Auto 0 /uL (0-100); Basophils Percent Auto 0.5 % (0-2); Blood Urea Nitrogen 20 mg/dL (7-17); Calcium 9.4 mg/dL (8.4-10.2); Carbon Dioxide 35 mmol/L (22-32); Chloride 97 mmol/L (98-107); Eosinophils Absolute Auto 100 /uL (0-450); Eosinophils Percent Auto 1.3 % (2-4); Estimated Glomerular Filt Rate 59 mL/min (>60); Glucose 121 mg/dL (80-110); HEMOLYSIS < 15 (0-50); Hematocrit 40.9 % (36-46); Hemoglobin 13.5 g/dL (12.0-16.0); Lymphocytes Absolute Auto 3500 /uL (1100-4500); Lymphocytes Percent Auto 40.3 % (25-40); Mean Corpuscular Hemoglobin 27.9 PG (26-34); Mean Corpuscular Volume 84.4 fL (80-100); Monocytes Absolute Auto 700 /uL (0-900); Monocytes Percent Auto 7.4 % (3-14); Neutrophils Absolute Auto 4400 /uL (1500-7000); Neutrophils Percent Auto 50.5 % (50-75); Platelet Count 280 X10^3/uL (150-400); Potassium 3.8 mmol/L (3.4-5.1); Red Blood Cell Count 4.84 X10^6/uL (4.0-5.2); Red Cell Distribution Width 14.9 % (11.6-14.8); Sodium 138 mmol/L (137-145); White Blood Cell Count 8.8 X10^3/uL (4.5-11.0)
[2022-01-23 15:16] LABS: Hemoglobin A1C% w Est Avg Glu 6.5 % (4.0-6.0)
== END ==
PROVIDERS: PCP Internal Medicine; Referring Provider Orthopaedic Surgery; Visit Provider Orthopaedic Surgery
DX: Z01.818 Encounter for other preprocedural examination (principal); M25.50 Pain in unspecified joint; R73.9 Hyperglycemia, unspecified; Z01.812 Encounter for preprocedural laboratory examination
CPT/HCPCS: 36415; 80048; 83036; 85025; 93005

== ENCOUNTER → 2022-02-02 13:59 | Outpatient (CLI) | payer MEDICARE, SELFPAY ==
[2022-02-02 16:29] LABS: COVID19 -Nasal RAPID Negative (Negative)
== END ==
PROVIDERS: PCP Internal Medicine; Visit Provider Family Medicine Sleep Medicine
DX: Z20.822 Contact with and (suspected) exposure to COVID-19 (principal)
CPT/HCPCS: 87635; C9803

== ENCOUNTER 2022-02-04 08:43 | Day surgery (SDC) | payer MEDICARE, SELFPAY ==
[2022-01-27 12:41] VITALS: BMI 36.6
[2022-02-04] VITALS (26 sets, daily range): BP systolic 76–147; BP diastolic 31–74; PULSE 57–77; RESP 12–19; TEMP 35.6–36.6; O2SAT 92–99; BMI 36.6; BMI 38.7
--- NOTE | 2022-02-04 08:49 | DI.RAD.S_ITS ---
PROCEDURE: XR KNEE RT 1TO2V INDICATIONS: right post op TECHNIQUE: 2 view(s) of the knee acquired. COMPARISON: [facility], CR, XR KNEE RT 1TO2V, 12/03/2021, 18:40. FINDINGS: Bones: Patient is status post knee joint arthroplasty. Hardware components are in expected positions. Visualized bony structures are intact. Soft tissues: Overlying postoperative changes are noted. IMPRESSION: Expected postoperative change. Dictated by: Melonie Glez M.D. on 02/04/2022 at 17:33 Approved by: Melonie Glez M.D. on 02/04/2022 at 17:33
[2022-02-04] MEDS: PREGABALIN 75 MG CAPSULE PO (09:26)
[2022-02-04] MEDS: ACETAMINOPHEN 325 MG TABLET 975 MG PO (09:26)
[2022-02-04] MEDS: CELECOXIB 200 MG CAPSULE PO (09:26)
[2022-02-04] MEDS: LACTATED RINGERS 1,000 ML 42 ML IV ×2 (09:28→12:36)
--- NOTE | 2022-02-04 10:18 | PM.PREOP ---
Pre-operative Note COVID-19 COVID-19 status: Negative Result date/Date tested (Pos, Neg/Pending): 02/02/22 Interval Note History & Physical reviewed/Exam performed by Physician: Yes Changes to H&P: No
[2022-02-04] MEDS: CEFAZOLIN 2 GM/20 ML SYRINGE IV (11:24)
[2022-02-04] MEDS: TRANEXAMIC ACID 1,000 MG VIAL 1000 MG INJ ×2 (11:30→12:38)
--- NOTE | 2022-02-04 11:43 | SUR.OPER ---
Supine on padded OR bed. Pillow under head, arms secured on padded armboards <90 degree abduction. Safety belt across torso. Non-operative leg secured with tape over blanket over lower leg. Operative leg secured in DeMayo/Noel/Nathe positioner. Foam padded brace at thigh of operative leg. Approved and directed by surgeon.
[2022-02-04] MEDS: BUPIVACAINE 0.25% (PF) 60 ML, EPINEPHrine 0.3 MG INJ (11:51)
[2022-02-04] MEDS: MORPHINE 4 MG/ML INJ IV (11:52)
[2022-02-04] MEDS: BUPIVACAINE LIPOSOME 266 MG/20 ML VIAL INJ (12:15)
--- NOTE | 2022-02-04 12:57 | PM.OP.1 ---
Operative Date/Time/Diagnoses Date of procedure: 02/04/22 Time of procedure: 12:57 Pre-op diagnosis: Right knee osteoarthritis Post-op diagnosis: same Procedure & Clinicians Procedure: Right total knee replacement Same procedure as scheduled: Yes Indications: The patient has had progressively worsening right knee pain with radiographic changes consistent with arthritis. Non-operative management has failed and the patient has requested total knee replacement. The risks, benefits and alternatives to surgery were discussed with the patient prior to proceeding. Risks discussed included, but were not limited to, failure to relieve pain, stiffness, infection, nerve damage, deep venous thrombosis, pulmonary embolism, stroke, coma, heart attack, permanent paralysis and , as well as the potential need for eventual revision of the prosthetic. Surgeon: Laz Parry Wafer Cutter: Julio Montanez Click Yes if Unassisted: No Anesthesia Type: General, Spinal and Local Operative Notes Findings: Severe tricompartmental osteoarthritis with flexion contracture and lateral subluxation of the tibia on the femur. Closure Type: primary Specimen(s): none sent Prosthetic devices, grafts, tissues, transplants, or devices: Implants used in this procedure were manufactured by the [employer] and included the BCS II Journey total knee replacement with a size 5 right cobalt chromium femoral component, size 4 right non porous tibial base plate, a 10 mm thick cross-linked polyethylene tibial insert and a 32 mm oval Jenifre II patella. Applied: implant(s) Estimated Blood Loss (mL): 25 Tourniquet time (min): 54 Procedure in detail: The patient was seen in the pre-operative area, where the patient identified the right knee as the operative site and this was marked with my initials. The patient received pre-operative antibiotics, and was taken to the operating room and placed on the operative table in the supine position. After satisfactory anesthesia, a time signal wirer out was performed. The right leg was encircled with a tourniquet about the proximal thigh, and the leg was prepared from the toes to the tourniquet with ChloroPrep in the usual fashion and draped through sterile drapes. The leg was elevated and exsanguinated with Eschmark bandage and the tourniquet inflated to 250 mmHg pressure. The knee was approached through an approximately 18 cm incision centered over the patella and carried into the knee through a medial parapatellar arthrotomy. The anterior osteophytes and soft tissues were removed. The rotational landmarks of Lynette's line and the transepicondylar axis were marked on the femur with electrocautery, and intramedullary guide holes for the femur and tibia were created. The distal femoral cut was made in 6 degrees of valgus using the intramedullary guide at the +2 cut setting due to a flexion contracture. The proximal tibial cut was then made using the intramedullary guide, taking 9 mm of bone off the less involved side. The extension gap was checked and the rotation of the femoral component confirmed with the gap balancing system. The anterior, posterior and chamfer cuts were then made. The posterior osteophytes and soft tissues were then removed. The posterior capsule was injected with part of a mixture of 60 ml 0.25% Marcaine mixed with 20 ml Exparel and 4 mg of morphine for post-operative pain control. The remainder of this mixture was injected into the capsule and subcutaneous tissues during cement curing. The tibia was prepared with the rotation set by an extra medullary guide. Trial tibial and femoral components were then placed and the intercondylar notch cut through the femoral trial. Range of motion was 0-135 degrees, with good stability throughout the range. The patella was then cut to accommodate the patellar prosthetic. There was no need for a lateral release. The trials were then removed, and the femoral hole plugged with a bone plug. The bone was prepared with pulsatile lavage, and dried with a sponge. Cement was applied and the final prosthetics placed. Excess cement was removed during and after cement curing. After confirming there was no extruded cement posteriorly, the final tibial insert was placed. The knee was copiously irrigated and the tourniquet deflated. Hemostasis was obtained. The capsule was closed with interrupted # 2 polyester suture. The subcutaneous layer was closed with 3-0 Vicryl, and the skin with a running 3-0 V-Lock suture and Dermabond. An Aquacel Ag dressing was applied and the patient was taken to recovery having tolerated the procedure well. Complications: none Post-operative Condition: stable Disposition: PACU Plan for aftercare: The patient will be maintained on a standard total knee replacement protocol with weight bearing as tolerated. The patient will receive aspirin and sequential compression devices for DVT prophylaxis. The patient will be discharged home when safe for the home environment.
--- NOTE | 2022-02-04 14:34 | SUR.PHASEI ---
report called to Shanique RAMOS and opportunity for questions given. Pt transferring to room 202 and is agreeable.
[2022-02-04] MEDS: IBUPROFEN 400 MG TABLET PO ×3 (15:09→20:48)
[2022-02-04] MEDS: LACTATED RINGERS 1,000 ML 100 ML IV (15:09)
[2022-02-04] MEDS: ACETAMINOPHEN 325 MG TABLET 650 MG PO ×2 (15:10→20:47)
[2022-02-04] MEDS: atenoloL 50 MG TABLET 100 MG PO (16:57)
[2022-02-04] MEDS: ATORVASTATIN 20 MG TABLET 10 MG PO (20:47)
[2022-02-04] MEDS: ASPIRIN EC 81 MG TABLET PO (20:47)
[2022-02-04] MEDS: DOCUSATE 100 MG CAPSULE PO (21:37)
[2022-02-05] MEDS: IBUPROFEN 400 MG TABLET PO ×4 (00:56→13:42)
[2022-02-05] MEDS: OXYCODONE IR 5 MG TABLET PO ×2 (02:29→13:43)
[2022-02-05] MEDS: OXYCODONE IR 10 MG TABLET PO ×2 (07:00→10:34)
[2022-02-05 07:09] LABS: Hematocrit 33.5 % (36-46); Hemoglobin 11.2 g/dL (12.0-16.0)
--- NOTE | 2022-02-05 07:58 | P.DS_ITS ---
History of Present Illness History of Present Illness Date Patient Seen: 02/05/22 Time Patient Seen: 07:58 Chief complaint: Knee pain Narrative: Patient's pain is been [id number]. Denies fever chills. No nausea vomiting. Patient has assistance at. Discharge Providers Provider Discharge Date: 02/05/22 Primary care physician: Henry Ham MD Consults: 02/04/22 14:50 Consult to Discharge Planning Routine Comment: Consult to Physical Therapy Evaluate & Treat Comment: Physician Instructions: postop TKA protocol Consult to Respiratory Therapy Evaluate & Treat Comment: Physician Instructions: Evaluate and treat Discharge provider: Julio Montanez PA-C Summary Hospital Course Discharge Diagnosis: Right knee osteoarthritis Hospital Course: Procedure: Right total knee replacement Same procedure as scheduled: Yes Indications: The patient has had progressively worsening right knee pain with radiographic changes consistent with arthritis. Non-operative management has failed and the patient has requested total knee replacement. The risks, benefits and a lternatives to surgery were discussed with the patient prior to proceeding. Risks discussed included, but were not limited to, failure to relieve pain, stiffness, infection, nerve damage, deep venous thrombosis, pulmonary embolism, stroke, coma, heart attack, permanent paralysis and , as well as the potential need for eventual revision of the prosthetic. Surgeon: Laz Parry Drive Tester: Julio Montanez Click Yes if Unassisted: No Anesthesia Type: General, Spinal and Local Operative Notes Findings: Severe tricompartmental osteoarthritis with flexion contracture and lateral subluxation of the tibia on the femur. Closure Type: primary Specimen(s): none sent Prosthetic devices, grafts, tissues, transplants, or devices: Implants used in this procedure were manufactured by the [employer] and included the BCS II Journey total knee replacement with a size 5 right cobalt chromium femoral component, size 4 right non porous tibial base plate, a 10 mm thick cross-linked polyethylene tibial insert and a 32 mm oval Jenifer II patella. Applied: implant(s) Estimated Blood Loss (mL): 25 Tourniquet time (min): 54 Patient admitted to the hospital for right total knee arthroplasty. Patient consented to the same. Patient taken operating room on February 04, 2022. Patient underwent right total knee arthroplasty. Patient back in her room recovering well as in stable condition. Patient will mobilize with physical therapy may be discharged home today if safe for home environment. Exam Vital Signs (past 8 hours): Oxygen Delivery Method Room Air Oxygen Flow Rate 0 Narrative Exam Narrative: 81-year-old female resting comfortably in bed in no apparent distress. Right knee dressing is Clean, dry, intact.. Motor functions intact distally. Sensation grossly intact to light touch. Objective Labs Result Diagrams: 02/05/22 06:53 Labs: Laboratory Results - last 24 hr 02/05/22 06:53 Hgb 11.2 L Hct 33.5 L PFSH Medical History Diabetes HLD (hyperlipidemia) HTN (hypertension) Hypothyroid Surgical History History of arthroplasty of left knee (2017) History of bilateral tubal ligation Hx of appendectomy Social History household members: none Smoking Status: Never smoker alcohol intake: current Discharge Assessment & Plan Assessment and Plan Assessment: Patient progressing as expected status post right total knee arthroplasty Plan of Treatment: Mobilize with physical therapy Multimodal pain management Discharge home after physical therapy if safe for home environment. Discharge Plan Discharge Plan Patient Disposition: Home Discharge orders & Medications Discharge Orders: Discharge (Order); Ordered 02/05/22 Ordered By: Julio Montanez Prescriptions: New acetaminophen 325 mg Tablet 650 mg PO TID Qty: 60 0RF polyethylene glycol 3350 17 gram Powder In Packet 17 gm PO DAILY PRN (Reason: Constipation) Qty: 20 0RF aspirin 81 mg Tablet,Delayed Release (Dr/Ec) 81 mg PO BID Qty: 60 0RF ibuprofen 400 mg Tablet 400 mg PO Q4HR Qty: 60 0RF oxycodone 10 mg Tablet 10 mg PO Q3HR PRN (Reason: Pain, Severe (7-10)) Qty: 60 0RF Continued metformin 500 mg Tablet 500 mg PO DAILY 0RF atenolol 100 mg Tablet 100 mg PO QPM 0RF amlodipine 5 mg Tablet 5 mg PO DAILY 0RF simvastatin 20 mg Tablet 20 mg PO BEDTIME 0RF metoprolol tartrate 50 mg Tablet 50 mg PO BID 0RF hydrochlorothiazide 25 mg Tablet 25 mg PO DAILY 0RF Discontinued aspirin 81 mg Tablet,Delayed Release (Dr/Ec) 81 mg PO DAILY 0RF tramadol 50 mg tablet 50 mg PO 5XD 0RF Follow up/Referrals: Julio Montanez PA-C [Advanced Interventional Pain Physician] - Henry Ham MD [Primary Care Provider] - Laz Parry MD [Physician] - As previously scheduled (Follow up with Dr Parry on 02/16/2022 @ 1:00 pm at [facility] in [place].) Diet/Activity/Treatments Diet: Diet as Tolerated Activity: Weight-bearing as tolerated Cold/Heat Therapy: Ice to knee as needed Skin/Wound/Dressing Care Report to your healthcare provider any signs of infection, such as:: chills, fever, increased pain, unusual drainage and unusual redness Dressing: May remove Kole wrap in 24-48 hours, leave dressing in place Visit Report/Discharge Packet Instructions: DI for Knee Replacement Stand Alone Forms: Surgery Discharge Discharge Data Primary Care Provider: Henry Ham Attending Provider: Laz Parry Quality VTE Deep Vein Thrombosis/Pulmonary Embolism Present on Admission: No
[2022-02-05 08:00] VITALS: BP 150/56; PULSE 67; RESP 16; TEMP 36.6; O2SAT 97
[2022-02-05] MEDS: polyethylene glycoL 3350 17 GM POWD.PACK PO (08:34)
[2022-02-05] MEDS: AMLODIPINE 5 MG TABLET PO (08:34)
[2022-02-05] MEDS: DOCUSATE 100 MG CAPSULE PO (08:34)
[2022-02-05] MEDS: hydroCHLOROthiazide 25 MG TABLET PO (08:34)
[2022-02-05] MEDS: METFORMIN HCL 500 MG TABLET PO (08:34)
[2022-02-05] MEDS: ASPIRIN EC 81 MG TABLET PO (08:34)
[2022-02-05] MEDS: ACETAMINOPHEN 325 MG TABLET 650 MG PO ×2 (08:35→14:54)
[2022-02-05 09:28] VITALS: O2SAT 97
--- NOTE | 2022-02-05 11:34 | CM.DANOTE ---
DCP: Case received, EMR reviewed and met with patient. Introduces self and role. Was able to obtain information regarding patient's baseline activity level at home prior to surgery, as well as her current living situation. DCP assessment completed with information currently available. Patient is an 81 year old female who admitted yesterday morning to the care of the orthopedic team. PCP: Dr. Ham. Payer: confirmed: Medicare. Patient came to the hospital via private vehicle for a surgical procedure. Patient had a right total knee replacement. Patient has had history of recent fall at home a couple of weeks ago, according to notes, she had tripped over a wire. Patient has history of osteoarthritis. Met with patient in her room. She is alert and oriented, pleasant. She resides in [place] alone, but indicated, her [id number], Candida, will be staying with her. She has a cane she uses at home, also has a walker. She has been driving. P: Patient has discharge orders for home today pending working with PDerrickT. Seema Packer RN/Juvenile Counselor Discharge Planning/Care Management Advanced directive, confirm from FAMILY Start: 02/04/22 16:41 Freq: Q24H Status: Active Protocol: Document 02/04/22 16:41 BT (Rec: 02/04/22 16:46 BT [id number]) Advance Directive, confirm on record Time 16:46 Person contacted Patient Copy received No CM Discharge Assessment Start: 02/05/22 11:31 Freq: Status: Active Protocol: Document 02/05/22 11:31 (Rec: 02/05/22 11:34 [id number]) Discharge Planning Assessment Assigned Music Publicist Seema Packer RN/Juvenile Counselor Advance Directives? No Advance Directives on File No History Provided By Patient,Medical Record Prior Living Arrangements House Household Members none Type of transporation used prior to Drives own vehicle admit Independent with ADL's Yes Is patient alert and oriented? Yes Comment Patient states she has cane at home has previously only used it outside but family just purchased Wheelchair and FWW. Patient/Family Preference OP PT Therapy Barriers to Discharge No Comment Patient stated, has daughter- in-law who will be staying with her. Discharge Plan Home Transportation Arrangement Family Referrals Initiated None needed Whiteboard Updated in Patient Room with Yes name and ext. # of Music Publicist Review Status In Process Next Review Type Continued Stay Review Pre-Anesthesia Assessment Start: 01/27/22 12:41 Freq: Status: Complete Protocol: Document 01/27/22 12:41 CAB (Rec: 01/27/22 13:27 CAB [id number]) Pre-Anesthesia Assessment Preferred Name Fabiola Patient Information Reviewed Via Phone Assessment Assessment Completed With Patient Diagnostic Results BMP/CMP,CBC,EKG Comment Labs/ECG @ [facility] 01/23/22, COVID screen @ 02/02/22 Primary Care Provider Henry Ham Seen Specialist in Last 12 Months Yes Specialist Seen Orthopedist Primary Language Bulgarian Flight Test Supervisor Required No Height 5 ft 2 in Weight 199 lb 15.983 oz Body Mass Index (BMI) 36.6 Hearing Ability Normal Visual Assist Glasses Dentition Type Teeth, Natural Present Barriers to Learning None Hx Anesthesia Reactions No Hx Family Anesthesia Reaction No Hx Malignant Hyperthermia No Hx Blood Transfusions No Anesthesia Review Requested Yes: PAC courtesy re: Abnormal pre-op ECG alcohol intake current alcohol intake frequency 0-2 drinks per day Smoking Status Never smoker Substance Use Type does not use Pain Present Pain Reported Musculoskeletal Symptoms Abnormal Gait,Difficulty Walking,Joint Pain History of Falling (Recent or History of Yes ) Patient is completely paralyzed or No completely immobile Prosthesis or Orthotic Device Cane Mental Status Oriented to own ability Is patient on oxygen? No Does patient have RICK/SOB No Hx Sleep Apnea No Currently Taking a Beta Rock Yes: Atenolol and Metoprolol Can You Climb a Flight of Stairs Without Pt unsure, has not climbed SOB stairs due to pain Hx Chest Pain No Hx SOB No Hx Syncope or Dizziness No Anti-Coagulant Therapy No Has a Sand Buffer No Cardiac Testing No Hx Pacemaker/ICD No Pacemaker Rep Required? No Comment Pt is very active in the garden, chopping wood Diet Type At Home Regular dysphagia No Bladder Pattern Frequency,Incontinent Urinary Catheter Present No Hx Urinary Self Catheterization No Diabetes Yes HgbA1C 6.5 Date 01/23/22 Patient No Lactating No Hx Drug Resistant Organism No Presence of External or Internal Medical Yes: Left knee Devices Have you had any close contact with No someone diagnosed with COVID-19? Received a COVID vaccine? Yes Received all doses? Yes Marital Status Lives With none Prior Living Arrangements House Number of Floors (Floors) One Floor Support System Child/Children Does the Patient Have Assistance After Yes: Son & daughter in-law Surgery will stay w/pt to assist w/ care at [place] Patient Discharge Plan Description Return Home Comment Pt advised 2 day length of stay per surgeon Feels Safe in Current Environment Yes Been Physically Hurt or Threatened By a No Person in Current Environment Do you have thoughts of harming yourself None or others? Are you currently considering suicide? No Do you have a plan to hurt yourself or No Plan others? Do You Have Any Spiritual Beliefs That No May Affect Your HC Choices? Do You Have Any Cultural Practices That No May Affect Your HC Choices? Comment Yarsani Who Can We Speak to About Patient's Care Family, friends Identifying Code for Release of Patient Declines to issue Information Health Care Proxy/Next of Kin Elijah (son) Maral (daughter in- law) Health Care Proxy Phone Number Elijah: [phone], cell:, Maral: [phone] Emergency Contact Name Elijah (son) Maral (daughter in- law) Emergency Contact Phone Number Elijah: [phone], cell:, Maral: [phone] Advance Directives? Yes Advance Directives on File No Power of Storage Solutions Architect Yes Power of Storage Solutions Architect Name Elijah (rogers) Power of Storage Solutions Architect PAC Instructions Do not shave/clip surgical site,Durable medical equipment ,Medications to take/avoid, Nasal antibiotic,No ETOH/ petroleum product on skin DOS, NPO,Post-op transportation,Pre -surgical wash,Sensory aids, Sturdy shoes/comfortable clothes,Do not bring valuables and remove jewelry Discharge Planning/Care Management Advanced directive, confirm from FAMILY Start: 02/04/22 16:41 Freq: Q24H Status: Active Protocol: Document 02/04/22 16:41 BT (Rec: 02/04/22 16:46 BT [id number]) Advance Directive, confirm on record Time 16:46 Person contacted Patient Copy received No CM Discharge Assessment Start: 02/05/22 11:31 Freq: Status: Active Protocol: Document 02/05/22 11:31 (Rec: 02/05/22 11:34 [id number]) Discharge Planning Assessment Assigned Music Publicist Seema Birdie, RN/Juvenile Counselor Advance Directives? No Advance Directives on File No History Provided By Patient,Medical Record Prior Living Arrangements House Household Members none Type of transporation used prior to Drives own vehicle admit Independent with ADL's Yes Is patient alert and oriented? Yes Comment Patient states she has cane at home has previously only used it outside but family just purchased Wheelchair and FWW. Patient/Family Preference OP PT Therapy Barriers to Discharge No Comment Patient stated, has daughter- in-law who will be staying with her. Discharge Plan Home Transportation Arrangement Family Referrals Initiated None needed Whiteboard Updated in Patient Room with Yes name and ext. # of Music Publicist Review Status In Process Next Review Type Continued Stay Review Pre-Anesthesia Assessment Start: 01/27/22 12:41 Freq: Status: Complete Protocol: Document 01/27/22 12:41 CAB (Rec: 01/27/22 13:27 [facility] [id number]) Pre-Anesthesia Assessment Preferred Name Fabiola Patient Information Reviewed Via Phone Assessment Assessment Completed With Patient Diagnostic Results BMP/CMP,CBC,EKG Comment Labs/ECG @ [facility] 01/23/22, COVID screen @ [facility] 02/02/22 Primary Care Provider Henry Ham Seen Specialist in Last 12 Months Yes Specialist Seen Orthopedist Primary Language Bulgarian Flight Test Supervisor Required No Height 5 ft 2 in Weight 199 lb 15.983 oz Body Mass Index (BMI) 36.6 Hearing Ability Normal Visual Assist Glasses Dentition Type Teeth, Natural Present Barriers to Learning None Hx Anesthesia Reactions No Hx Family Anesthesia Reaction No Hx Malignant Hyperthermia No Hx Blood Transfusions No Anesthesia Review Requested Yes: PAC courtesy re: Abnormal pre-op ECG alcohol intake current alcohol intake frequency 0-2 drinks per day Smoking Status Never smoker Substance Use Type does not use Pain Present Pain Reported Musculoskeletal Symptoms Abnormal Gait,Difficulty Walking,Joint Pain History of Falling (Recent or History of Yes ) Patient is completely paralyzed or No completely immobile Prosthesis or Orthotic Device Cane Mental Status Oriented to own ability Is patient on oxygen? No Does patient have RICK/SOB No Hx Sleep Apnea No Currently Taking a Beta Rock Yes: Atenolol and Metoprolol Can You Climb a Flight of Stairs Without Pt unsure, has not climbed SOB stairs due to pain Hx Chest Pain No Hx SOB No Hx Syncope or Dizziness No Anti-Coagulant Therapy No Has a Sand Buffer No Cardiac Testing No Hx Pacemaker/ICD No Pacemaker Rep Required? No Comment Pt is very active in the garden, chopping wood Diet Type At Home Regular dysphagia No Bladder Pattern Frequency,Incontinent Urinary Catheter Present No Hx Urinary Self Catheterization No Diabetes Yes HgbA1C 6.5 Date 01/23/22 Patient No Lactating No Hx Drug Resistant Organism No Presence of External or Internal Medical Yes: Left knee Devices Have you had any close contact with No someone diagnosed with COVID-19? Received a COVID vaccine? Yes Received all doses? Yes Marital Status Lives With none Prior Living Arrangements House Number of Floors (Floors) One Floor Support System Child/Children Does the Patient Have Assistance After Yes: Son & daughter in-law Surgery will stay w/pt to assist w/ care at [place] Patient Discharge Plan Description Return Home Comment Pt advised 2 day length of stay per surgeon Feels Safe in Current Environment Yes Been Physically Hurt or Threatened By a No Person in Current Environment Do you have thoughts of harming yourself None or others? Are you currently considering suicide? No Do you have a plan to hurt yourself or No Plan others? Do You Have Any Spiritual Beliefs That No May Affect Your HC Choices? Do You Have Any Cultural Practices That No May Affect Your HC Choices? Comment Yarsani Who Can We Speak to About Patient's Care Family, friends Identifying Code for Release of Patient Declines to issue Information Health Care Proxy/Next of Kin Elijah (son) Maral (daughter in- law) Health Care Proxy Phone Number Elijah: [phone], cell:, Maral: [phone] Emergency Contact Name Elijah (son) Maral (daughter in- law) Emergency Contact Phone Number Elijah: [phone], cell:, Maral: [phone] Advance Directives? Yes Advance Directives on File No Power of Storage Solutions Architect Yes Power of Storage Solutions Architect Name Elijah kennedy) Power of Storage Solutions Architect PAC Instructions Do not shave/clip surgical site,Durable medical equipment ,Medications to take/avoid, Nasal antibiotic,No ETOH/ petroleum product on skin DOS, NPO,Post-op transportation,Pre -surgical wash,Sensory aids, Sturdy shoes/comfortable clothes,Do not bring valuables and remove jewelry
[2022-02-05 11:44] VITALS: BMI 38.7
--- NOTE | 2022-02-05 11:45 | PT.IIE ---
Current Diagnoses Unilateral primary osteoarthritis, right knee (02/04/22) Contusion of right knee, initial encounter (02/04/22) Surgery Performed Operation Date: 02/04/22 10:15 Actual Procedures p Total Knee Arthroplasty(Right) - Laz Parry MD Medical History (Last Reviewed 02/05/22 @ 08:00 by Julio Montanez PA-C) Diabetes HLD (hyperlipidemia) HTN (hypertension) Hypothyroid Physical Therapy Inpatient Evaluation/Re-Eval M1 PT/OT-IP Prior Functional Status Start: 02/05/22 12:46 Freq: NEEDED Status: Active Protocol: Document 02/05/22 12:46 AB (Rec: 02/05/22 12:59 AB [email or web address]) Medical Review Prior Functional Status Communication able to make needs known Mobility and Gait pt stated that she is modified independent with all mobilities and ambulation without AD indoors but uses a SPC outdoor and when she goes shopping has to use the store' s electric cart Social History Household Members none Living Arrangements House Additional Social History Comment pt stated that her daughter-in -law will stay with her to assist her in the next 24 hours M2 PT-IP Current Condition Start: 02/05/22 12:46 Freq: NEEDED Status: Active Protocol: Document 02/05/22 12:46 AB (Rec: 02/05/22 12:59 AB [email or web address]) Physical Therapy Current Condition Current Condition Evaluation Date 02/05/22 Treatment Diagnosis s/p R TKA; difficulty in walking Onset Date 02/04/22 M3 PT-IP Subjective Start: 02/05/22 12:46 Freq: NEEDED Status: Active Protocol: Document 02/05/22 12:46 AB (Rec: 02/05/22 12:59 AB [email or web address]) Subjective Physical Therapy Visit Type Type Initial Evaluation Visit Start Time 11:45 Visit Stop Time 12:25 Total Visit Minutes 40 Number of [employer]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 checked back on pt prior to lunch and educated on importance of PT to safely go home and pt agreed to move. Therapy Pain Assessment Pain When Pain Assessed At Rest Pain Present Pain Present Pain Reported Location Right Knee Scale Used pain scale not stated Pain Management Techniques Distraction,Modification of Treatment,Re-positioning, Timing of Activity with Medications M4 PT-IP Mobility and Gait Start: 02/05/22 12:46 Freq: NEEDED Status: Active Protocol: Document 02/05/22 12:46 AB (Rec: 02/05/22 12:59 [email or web address]) PT-Bed Mobility Assessment Supine to Sit Supine to Sit Standby Assistance Sit to Supine Sit to Supine Standby Assistance PT-Transfer Assessment Sit to and From Stand Sit to and from Stand Standby Assistance,Contact Guard Assistance,1 Person Assistance,Use of Upper Extremities Equipment Transfer Assistive Device Gait Belt,Front Wheeled Walker Orthotic/Prosthetic Devices or Brace: No Transfers Transfer Destination Chair Transfer Technique ambulated using FWW Transfer Ability Level of Assist Standby Assistance,Contact Guard Assistance Comments Mobility Comments completed supine <>sit SBA. pt used bed rail for supine to sit to assist. completed sit to stand SBA to CGA and pt able to ambulate using FWW SBA to CGA ~ 25 ft. completed up/ down platform step using FWW CGA. pt ambulated back to her room and sat on the chair and positioned. set up pt for lunch. call light and table placed within reach. Gait Assessment Gait Gait Assistance Required: Standby Assistance,Contact Guard Assist Distance (Feet) 25 Able to Maintain Weight Bearing Status Yes During Gait Assistive Devices Assistive Device Gait Belt,Front Wheeled Walker Orthotic/Prosthetic Devices or Brace: No Gait Deviations General Gait Pattern Antalgic,Decreased Stride Length,Decreased Feet Clearance Factors Limiting Gait Function Factors Limiting Gait Function Decreased Activity Tolerance, Decreased Strength,Limited Range of Motion,Pain,Poor Balance,Poor Safety Awareness Stair Climbing Assessment Evaluation Level of Assist On Stairs Contact Guard Assistance Devices Stair Climbing Assistive Devices Front Wheel Walker Technique/Endurance Stair Climbing Direction Ascend and Descend Stair Climbing Technique Step to Step Number of Steps Climbed 1 Query Text: Stair Climbing Set # Repetitions (reps) 1 PT-Balance Assessment Sitting Balance and Reactions Static Sitting Balance Ability Good Dynamic Sitting Balance Ability Good Standing Balance and Reactions Static Standing Balance Ability Fair Dynamic Standing Balance Ability Fair Device Used FWW M5 PT-IP Objective Assessments Start: 02/05/22 12:46 Freq: NEEDED Status: Active Protocol: Document 02/05/22 12:46 AB (Rec: 02/05/22 12:59 AB [email or web address]) Orientation Orientation/Cognition Level of Alertness Alert Orientation Name,Place,Situation Language Function Ability No Deficits Noted Safety Awareness Decreased Safety Awareness Memory Description No Deficits Noted Gross Range of Motion Lower Extremity ROM Assessment Right Impaired Impairments R knee flexion: ~ 40 deg Strength Lower Extremity Strength Assessment Right Impaired Hip 4-/5 Knee 3+/5 Sensation Assessment Sensation Gross Sensation WNL Muscle Tone Muscle Tone WNL Yes M6 PT-IP Treatment Start: 02/05/22 12:46 Freq: NEEDED Status: Active Protocol: Document 02/05/22 12:46 AB (Rec: 02/05/22 12:59 [email or web address]) Physical Therapy Treatment Education Education Provided Precautions,Weight Bearing Status,Post-Op Packet,Safety M7 PT-IP Assessment and Plan Start: 02/05/22 12:46 Freq: NEEDED Status: Active Protocol: Document 02/05/22 12:46 AB (Rec: 02/05/22 12:59 [id number]) PT Summary Assessment and Plan Potential Rehabilitation Potential Fair Status of Condition at Evaluation Stable Summary Impairments Pain,ROM,Strength,Balance, Coordination,Sensation,Tone, Cognition,Bed Mobility, Transfers,Gait,Activity Tolerance Assessment Summary pt requiring SBA to CGA with mobility despite c/o increase pain but pain limiting activity tolerance. pt plans to go home and her DIL will stay with her for ~ 24 hours. stated that if needed, daughter will be able to stay longer. pt stated that she has outpt PT set up. Goals Bed Mobility Goal Independent Transfer Goal Independent,Front Wheeled Walker Gait Goal Independent,Front Wheel Walker Gait Distance 200 Other Goals up/down platform set using FWW SBA Days to Meet Goals 5 Frequency of Treatment Frequency Of Treatment Twice a Day Treatment Plan Physical Therapy Treatment Plan Bed Mobility Training,Transfer Training,Gait Training, Therapeutic Exercise,Balance Retraining,Post Op Education, Discharge Planning,Hot or Cold Pack,Neuromuscular Re-ed, Coordination Retraining,Manual Therapy Weight Bearing Status Weight Bearing Status Weight Bear as Tolerated Allowed Weight Bearing Amount (enter % RLE WBAT or #) (%) Recommendations To Nursing Amount of Assist Needed 1 Person Assist Discharge Recommendations PT Discharge Recommendations Home with Assistance, Outpatient PT Transportation Needs at Discharge Private Vehicle
--- NOTE | 2022-02-05 13:45 | PT.IPTN ---
Current Diagnoses Unilateral primary osteoarthritis, right knee (02/04/22) Contusion of right knee, initial encounter (02/04/22) Surgery Performed Operation Date: 02/04/22 10:15 Actual Procedures p Total Knee Arthroplasty(Right) - Laz Parry MD Physical Therapy Treatment Note M2 PT-IP Current Condition Start: 02/05/22 12:46 Freq: NEEDED Status: Active Protocol: Document 02/05/22 12:46 AB (Rec: 02/05/22 12:59 AB [email or web address]) Physical Therapy Current Condition Current Condition Evaluation Date 02/05/22 Treatment Diagnosis s/p R TKA; difficulty in walking Onset Date 02/04/22 M3 PT-IP Subjective Start: 02/05/22 12:46 Freq: NEEDED Status: Active Protocol: Document 02/05/22 13:45 AB (Rec: 02/05/22 16:01 AB [email or web address]) Subjective Physical Therapy Visit Type Type Treatment Note Visit Start Time 13:45 Visit Stop Time 14:10 Total Visit Minutes 25 Number of ADVANCED MANUFACTURING CONSULTANT Visits 0 Physical Therapy Visit Comments Patient Comments agreeable to do PT M4 PT-IP Mobility and Gait Start: 02/05/22 12:46 Freq: NEEDED Status: Active Protocol: Document 02/05/22 13:45 AB (Rec: 02/05/22 16:01 AB [email or web address]) PT-Bed Mobility Assessment Supine to Sit Supine to Sit Standby Assistance,Bedrails Sit to Supine Sit to Supine Standby Assistance,Bedrails PT-Transfer Assessment Sit to and From Stand Sit to and from Stand Standby Assistance Equipment Transfer Assistive Device Gait Belt,Front Wheeled Walker Orthotic/Prosthetic Devices or Brace: No Transfers Transfer Destination Toilet Transfer Technique ambulated Transfer Ability Level of Assist Standby Assistance,Use of Upper Extremities Comments Mobility Comments pt completed supine to sit SBA . sit to stand SBA and ambulated towards the step using FWW SBA. completed up/ down step using FWW SBA and ambulated back towards the room using FWW and requested to use the toilet. completed hygiene care and sit to stand from the toilet SBA and ambulated towards the sink SBA . able to maintain standing balance SBA while completing handwashing. pt ambulated towards the bed using FWW and completed sit to supine sBA. positioned pt in bed. call light and table placed within reach. Gait Assessment Gait Gait Assistance Required: Standby Assistance Distance (Feet) 30 Able to Maintain Weight Bearing Status Yes During Gait Assistive Devices Assistive Device Gait Belt,Front Wheeled Walker Orthotic/Prosthetic Devices or Brace: No Gait Deviations General Gait Pattern Antalgic,Decreased Stride Length,Decreased Feet Clearance Factors Limiting Gait Function Factors Limiting Gait Function Decreased Activity Tolerance, Decreased Strength,Limited Range of Motion,Pain,Poor Balance,Poor Safety Awareness Stair Climbing Assessment Evaluation Level of Assist On Stairs Standby Assistance Devices Stair Climbing Assistive Devices Front Wheel Walker Technique/Endurance Stair Climbing Direction Ascend and Descend Stair Climbing Technique Step to Step Number of Steps Climbed 1 Stair Climbing Set # Repetitions (reps) 1 M5 PT-IP Objective Assessments Start: 02/05/22 12:46 Freq: NEEDED Status: Active Protocol: Document 02/05/22 12:46 AB (Rec: 02/05/22 12:59 AB [email or web address]) Orientation Orientation/Cognition Level of Alertness Alert Orientation Name,Place,Situation Language Function Ability No Deficits Noted Safety Awareness Decreased Safety Awareness Memory Description No Deficits Noted Gross Range of Motion Lower Extremity ROM Assessment Right Impaired Impairments R knee flexion: ~ 40 deg Strength Lower Extremity Strength Assessment Right Impaired Hip 4-/5 Knee 3+/5 Sensation Assessment Sensation Gross Sensation WNL Muscle Tone Muscle Tone WNL Yes M6 PT-IP Treatment Start: 02/05/22 12:46 Freq: NEEDED Status: Active Protocol: Document 02/05/22 13:45 AB (Rec: 02/05/22 16:01 [email or web address]) Physical Therapy Treatment Education Education Provided Safety M7 PT-IP Assessment and Plan Start: 02/05/22 12:46 Freq: NEEDED Status: Active Protocol: Document 02/05/22 13:45 AB (Rec: 02/05/22 16:01 AB [email or web address]) PT Summary Assessment and Plan Potential Rehabilitation Potential Good Summary Impairments Pain,ROM,Strength,Balance, Coordination,Sensation,Tone, Cognition,Bed Mobility, Transfers,Gait,Activity Tolerance Progress Towards Goals Progressing Toward Goals Assessment Summary pt progressing with mobility and plans to go home today with her daughter to assist her. pt may go home when medically stable. Goals Bed Mobility Goal Independent Transfer Goal Independent,Front Wheeled Walker Gait Goal Independent,Front Wheel Walker Gait Distance 200 Other Goals up/down platform set using FWW SBA Days to Meet Goals 5 Frequency of Treatment Frequency Of Treatment Twice a Day Treatment Plan Physical Therapy Treatment Plan Bed Mobility Training,Transfer Training,Gait Training, Therapeutic Exercise,Balance Retraining,Post Op Education, Discharge Planning,Hot or Cold Pack,Neuromuscular Re-ed, Coordination Retraining,Manual Therapy Weight Bearing Status Weight Bearing Status Weight Bear as Tolerated Allowed Weight Bearing Amount (enter % RLE WBAT or #) (%) Recommendations To Nursing Amount of Assist Needed 1 Person Assist Discharge Recommendations PT Discharge Recommendations Home with Assistance, Outpatient PT Transportation Needs at Discharge Private Vehicle
[2022-02-05 14:00] VITALS: BP 136/70; PULSE 70; RESP 16; TEMP 36.6; O2SAT 94
== END 2022-02-05 16:21 | disposition home or self-care (01) ==
LOC: OR 08:45 → AC 08:46
PROVIDERS: PCP Internal Medicine; Referring Provider Orthopaedic Surgery; Visit Provider Orthopaedic Surgery
PROC: 0SRC0JZ Replacement of Right Knee Joint with Synthetic Substitute, Open Approach (ICD-10-PCS; CPT 27447; principal; 2022-02-04 10:15)
DX: M17.11 Unilateral primary osteoarthritis, right knee (principal); I10 Essential (primary) hypertension; E66.9 Obesity, unspecified; E11.9 Type 2 diabetes mellitus without complications; Z79.84 Long term (current) use of oral hypoglycemic drugs; Z68.37 Body mass index [BMI] 37.0-37.9, adult
CPT/HCPCS: 27447; 36415; 73560; 82962; 85014; 85018; 94762; 97116; 97161; 97530; C1776; C1713; C9290; J0171; J0690; J2250; J2270; J2274; J2704; J3010